=== PATIENT | male | born 1995 | race Caucasian/White ===

== ENCOUNTER 2023-12-28 17:38 | Emergency (ER) | payer BC ==
--- NOTE | 2023-12-28 18:12 | ED ---
General Adult HPI - General Source: patient, EMS, RN notes reviewed Mode of arrival: EMS Limitations: no limitations <Thompson Tyler - Last Filed: 12/28/23 18:11> <Danae Mackenzie - Last Filed: 12/29/23 08:08> <Poncho Cole - Last Filed: 12/29/23 13:19> - General Chief complaint: Psychiatric Symptoms Stated complaint: Petitioned Time Seen by Provider: 12/28/23 18:05 - History of Present Illness Initial comments: 38-year-old male presenting to the ED with complaints of psychiatric symptoms. Per caregiver at prison, he reports that he is constantly attacking staff. (Thompson Tyler) 28-year-old male brought into the emergency department by his prison. They state that he is aggressive and attacking staff. He has resided in their facility since the . Previously the patient was living at home. The staff states that they cannot care for the patient because of his aggressive outbursts which are unprovoked. He does take medications however they state that they are not helping. He has been at [facility] twice for medication reevaluation in the emergency department. He has not been hospitalized. The patient cannot endorse any suicidal or homicidal ideations due to his developmental delay. [facility]way is currently refusing to take the patient back (Danae Mackenzie) - Related Data Allergies Allergy/AdvReac Type Severity Reaction Status Date / Time No Known Allergies Allergy Verified 12/29/23 07:50 Review of Systems ROS Other: All systems not noted in ROS Statement are negative. <Thompson Tyler - Last Filed: 12/28/23 18:11> ROS Other: All systems not noted in ROS Statement are negative. <Danae Mackenzie - Last Filed: 12/29/23 08:08> ROS Other: All systems not noted in ROS Statement are negative. <Poncho Cole - Last Filed: 12/29/23 13:19> ROS Statement: Those systems with pertinent positive or pertinent negative responses have been documented in the HPI. Past Medical History Additional Past Medical History / Comment(s): autism History of Any Multi-Drug Resistant Organisms: None Reported Past Surgical History: Unable to Obtain Past Psychological History: No Psychological Hx Reported Smoking Status: Unknown if ever smoked Past Alcohol Use History: Unable to Obtain Past Drug Use History: Unable to Obtain <Thompson Tyler - Last Filed: 12/28/23 18:11> General Exam Limitations: no limitations <Thompson Tyler - Last Filed: 12/28/23 18:11> Limitations: physical limitation General appearance: alert, in no apparent distress Head exam: Present: atraumatic, normocephalic, normal inspection Eye exam: Present: normal appearance, PERRL, EOMI. Absent: scleral icterus, conjunctival injection, periorbital swelling ENT exam: Present: normal exam, mucous membranes moist Neurological exam: Present: alert Psychiatric exam: Present: other (Restless) <Danae Mackenzie - Last Filed: 12/29/23 08:08> Course Vital Signs 12/28/23 12/29/23 18:05 10:54 Temperature 98.2 F 97.5 F L Pulse Rate 92 98 Respiratory 18 16 Rate Blood Pressure 126/71 122/81 O2 Sat by Pulse 95 99 Oximetry Medical Decision Making <Danae Mackenzie - Last Filed: 12/29/23 08:08> <Poncho Cole - Last Filed: 12/29/23 13:19> - Medical Decision Making Was pt. sent in by a medical professional or institution (PATEL Cani, ART THERAPIST, urgent care, hospital, or prison...) When possible be specific @ -[No] Did you speak to anyone other than the patient for history (EMS, parent, family, police, friend...)? What history was obtained from this source @ -[No] Did you review nursing and triage notes (agree or disagree)? Why? @ -[I reviewed and agree with nursing and triage notes] Were old charts reviewed (outside hosp., previous admission, EMS record, old EKG, old radiological studies, urgent care reports/EKG's, prison records)? Report findings @ -[No old charts were reviewed] Differential Diagnosis (chest pain, altered mental status, abdominal pain women, abdominal pain men, vaginal bleeding, weakness, fever, dyspnea, syncope, headache, dizziness, GI bleed, back pain, seizure, CVA, palpatations, mental health, musculoskeletal)? @ -[not applicable] EKG interpreted by me (3pts min.). @ -[As above] X-rays interpreted by me (1pt min.). @ -[None done] CT interpreted by me (1pt min.). @ -[None done] U/S interpreted by me (1pt. min.). @ -[None done] What testing was considered but not performed or refused? (CT, X-rays, U/S, labs)? Why? @ -[None] What meds were considered but not given or refused? Why? @ -[None] Did you discuss the management of the patient with other professionals (professionals i.e. , PA, ART THERAPIST, lab, RT, psych nurse, social science research assistant, filling machine tender, teacher, correctional probation officer, gearcase assembler)? Give summary @ -[No] Was smoking cessation discussed for >3mins.? @ -[No] Was critical care preformed (if so, how long)? @ -[No] Were there social determinants of health that impacted care today? How? (Homelessness, low income, unemployed, alcoholism, drug addiction, transportation, low edu. Level, literacy, decrease access to med. care, mcc, rehab)? @ -[No] Was there de-escalation of care discussed even if they declined (Discuss DNR or withdrawal of care, Hospice)? DNR status @ -[No] What co-morbidities impacted this encounter? (DM, HTN, Smoking, COPD, CAD, Cancer, CVA, ARF, Chemo, Hep., AIDS, mental health diagnosis, sleep apnea, morbid obesity)? @ -[None] Was patient admitted / discharged? Hospital course, mention meds given and route, prescriptions, significant lab abnormalities, going to OR and other pertinent info. @ -Upon arrival patient was seen and evaluated. Patient has not had any aggressive outbursts since he has been in the hospital. He is cleared for EPS evaluation. EPS does evaluate the patient and does not feel that he meets psychiatric criteria. Patient is not suicidal, homicidal. His actions are behavioral. The patient has no medical reason to be admitted to the hospital. [facility] staff is refusing to take the patient back. We attempt to get a hold of the patient's guardian however he has not answered. EPS will reevaluate the patient in the morning and try make contact with the guardian Undiagnosed new problem with uncertain prognosis? @ -[No] Drug Therapy requiring intensive monitoring for toxicity (Heparin, Nitro, Insulin, Cardizem)? @ -[No] Were any procedures done? @ -[No] Diagnosis/symptom? @ -[default] Acute, or Chronic, or Acute on Chronic? @ -[default] Uncomplicated (without systemic symptoms) or Complicated (systemic symptoms)? @ -[default] Side effects of treatment? @ -[No] Exacerbation, Progression, or Severe Exacerbation? @ -[No] Poses a threat to life or bodily function? How? (Chest pain, USA, VT, pneumonia, PE, COPD, DKA, ARF, appy, cholecystitis, CVA, Diverticulitis, Homicidal, Suicidal, threat to staff... and all critical care pts) @ -[No] (Danae Mackenzie) Patient seen by mental health services with plans for discharge. Patient reevaluated by myself and is resting comfortably in bed. Patient denies agitation and is agreeable not to cause problems. Diagnosis: Adjustment disorder Acute (Poncho Cole) - Lab Data Lab Results 12/29/23 Range/Units 11:40 Urine Opiates Screen Not Detected (NotDetected) Ur Oxycodone Screen Not Detected (NotDetected) Urine Methadone Screen Not Detected (NotDetected) Ur Barbiturates Screen Not Detected (NotDetected) U Tricyclic Antidepress Not Detected (NotDetected) Ur Phencyclidine Scrn Not Detected (NotDetected) Ur Amphetamines Screen Not Detected (NotDetected) U Methamphetamines Scrn Not Detected (NotDetected) U Benzodiazepines Scrn Detected H (NotDetected) Urine Cocaine Screen Not Detected (NotDetected) U Marijuana (THC) Screen Not Detected (NotDetected) Disposition <Thompson Tyler - Last Filed: 12/28/23 18:11> <Danae Mackenzie - Last Filed: 12/29/23 08:08> Is patient prescribed a controlled substance at d/c from ED?: No Time of Disposition: 13:18 <Poncho Cole - Last Filed: 12/29/23 13:19> Clinical Impression: Adjustment disorder Disposition: HOME SELF-CARE Condition: Stable Instructions (If sedation given, give patient instructions): Mood Disorders (ED) Additional Instructions: Please do follow-up with primary care physician in the next 1 or 2 days for recheck. Return for thoughts of self-harm or thoughts of harming others, worsening symptoms or other concerns. Referrals: Lj Beasley MD [STAFF PHYSICIAN] - 1-2 days
[2023-12-29] MEDS: OLANZapine 10 MG TAB PO ONE (03:29)
[2023-12-29] MEDS: OLANZapine 10 MG VIAL IM STA ×2 (03:29)
[2023-12-29] MEDS: [UNRECOGNIZED DRUG - OTHER] TOPICAL SCH (09:33)
[2023-12-29] MEDS: diphenhydrAMINE 50 MG CAP PO PRN (09:43)
[2023-12-29] MEDS: LORazepam 1 MG TAB PO SCH (09:43)
[2023-12-29] MEDS: SERTRALINE 50 MG TAB PO SCH (09:44)
[2023-12-29] MEDS: PETROLATUM, WHITE OINT 50 GM TUBE TOPICAL SCH (09:44)
[2023-12-29] MEDS: MULTIVITAMINS, THERA 1 EACH TAB PO SCH (09:44)
[2023-12-29] MEDS: BETAMETHASONE DIPROPIONATE 0.05% CREAM 15 GM TUBE TOPICAL SCH (09:44)
[2023-12-29 11:07] VITALS: BP 122/81; PULSE 98; RESP 16; TEMP 97.5
[2023-12-29 12:26] LABS: Amphetamine Screen,Urine Not Detected (NotDetected); Barbiturate Screen,Urine Not Detected (NotDetected); Benzodiazepines Screen,Urine Detected (NotDetected); Cocaine Screen,Urine Not Detected (NotDetected); Methadone Screen, Urine Not Detected (NotDetected); Opiate Screen,Urine Not Detected (NotDetected); Oxycodone Screen, Urine Not Detected (NotDetected); Phencyclidine Screen,Urine Not Detected (NotDetected); Tricyclic Antidepressant,Urine Not Detected (NotDetected); Urn Cannabinoid Scrn Not Detected (NotDetected)
[2023-12-29] MEDS ORDERED: OLANZapine 10 MG TAB PO SCH (21:00)
== END 2023-12-29 13:50 | disposition home or self-care (01) ==
LOC: EEVIPCON 17:38 → EC 17:38
DX: F43.20 Adjustment disorder, unspecified (principal)
CPT/HCPCS: 80306; 82075; 99285